=== PATIENT | female | born 1995 | race Two or more races ===

== ENCOUNTER 2017-11-26 15:44 | Emergency (ER) | payer OTHER, MEDICAID ==
[~2017-11-26] VITALS: Ht 157.5 cm; Wt 70.0 kg
[2017-11-26 15:49] VITALS: BP 109/72
== END 2017-11-26 16:15 | disposition left against medical advice (07) ==
LOC: ER 15:44
DX: Z53.21 Procedure and treatment not carried out due to patient leaving prior to being seen by health care provider (principal)